=== PATIENT | female | born 1990 | race Caucasian/White ===

== ENCOUNTER 2017-07-28 15:40 | Emergency (ER) | payer OTHER ==
[2017-07-28 16:50] VITALS: BP 118/73
--- NOTE | 2017-07-28 17:11 | UC ---
Respiratory Complaint HPI - HPI Summary HPI Summary: Patient presents to the with sinus pressure, sinus congestion, DUNN and cough. She was seen by her PCP who prescribed Cefdinir without relief. She states she feels as though her symptoms are becoming worse. Denies fever, but endorses chills and sweats. Cough is with production of yellow phlegm. Denies other symptoms. Denies flu shot. Endorses sick contacts. Non-smoker. - History of Current Complaint Hx Obtained From: Patient Hx Last Menstrual Period: 07/26/17 ?: No Onset/Duration: Sudden Onset Timing: Constant Severity Initially: Moderate Severity Currently: Moderate Pain Intensity: 4 Pain Scale Used: 0-10 Numeric Character: Cough: Productive Aggravating Factors: Deep Breaths, Recumbent Position Alleviating Factors: Upright Position, Spontaneous Resolution Associated Signs And Symptoms: Positive: URI, Nasal Congestion, Sinus Discomfort - Risk Factors Pulmonary Embolism Risk Factors: Negative Cardiac Risk Factors: Negative Tuberculosis Risk Factors: Negative <Sammie Jones - Last Filed: 07/28/17 17:06> <Nathalie Bolanos - Last Filed: 07/29/17 20:19> - History of Current Complaint Chief Complaint: UCGeneralIllness Stated Complaint: SINUS,FEVER,HEADACHE Time Seen by Provider: 07/28/17 16:56 - Allergies/Home Medications Allergies/Adverse Reactions: Allergies Allergy/AdvReac Type Severity Reaction Status Date / Time No Known Allergies Allergy Verified 07/28/17 16:50 Home Medications: Home Medications Escitalopram Oxalate [Lexapro 10 mg] 10 mg PO DAILY 07/28/17 [History Confirmed 07/28/17] Ibuprofen TAB* [Advil TAB*] 200 mg PO ONCE 07/28/17 [History Confirmed 07/28/17] PMH/Surg Hx/FS Hx/Imm Hx Previously Healthy: Yes - Surgical History Surgical History: Yes Surgery Procedure, Year, and Place: Right neck lymph node at age 12yrs. gastric sleeve 01/2016 - Family History Known Family History: Positive: Unknown - Social History Occupation: Employed Full-time Lives: With Family Alcohol Use: Occasionally Substance Use Type: None Smoking Status (MU): Never Smoked Tobacco <Sammie Jones - Last Filed: 07/28/17 17:06> Review of Systems Constitutional: Fever, Fatigue Skin: Negative ENT: Nasal Discharge, Sinus Congestion, Sinus Pain/Tenderness Respiratory: Negative Cardiovascular: Negative Motor: Negative Neurovascular: Negative Musculoskeletal: Negative Neurological: Headache Psychological: Negative Is Patient Immunocompromised?: No All Other Systems Reviewed And Are Negative: Yes <Sammie Jones - Last Filed: 07/28/17 17:06> Physical Exam Triage Information Reviewed: Yes Appearance: Well-Appearing, Well-Nourished Vital Signs: Initial Vital Signs Temp 98.1 F 07/28/17 16:44 Pulse 81 07/28/17 16:44 Resp 15 07/28/17 16:44 BP 118/73 07/28/17 16:44 Pulse Ox 100 07/28/17 16:44 Vital Signs Reviewed: Yes Eye Exam: Normal Eyes: Positive: Conjunctiva Clear Neck exam: Normal Neck: Positive: Supple, No Lymphadenopathy Respiratory Exam: Normal Respiratory: Positive: Chest non-tender, Lungs clear Cardiovascular Exam: Normal Cardiovascular: Positive: RRR Musculoskeletal Exam: Normal Musculoskeletal: Positive: Strength Intact Psychological Exam: Normal Psychological: Positive: Normal Response To Family Skin Exam: Normal <Sammie Jones - Last Filed: 07/28/17 17:06> Vital Signs: Initial Vital Signs Temp 98.1 F 07/28/17 16:44 Pulse 81 07/28/17 16:44 Resp 15 07/28/17 16:44 BP 118/73 07/28/17 16:44 Pulse Ox 100 07/28/17 16:44 <Nathalie Bolanos - Last Filed: 07/29/17 20:19> UC Diagnostic Evaluation - Laboratory O2 Sat by Pulse Oximetry: 100 <Sammie Jones - Last Filed: 07/28/17 17:06> Respiratory Course/Dx - Course Course Of Treatment: Patient is evaluated for sinus pressure and congestion. She has had sinus pressure despite recent abx. She is given augmentin, mucinex and return precautions. She understands and is OK with plan. - Differential Dx/Diagnosis Differential Diagnosis/HQI/PQRI: Bronchitis, Lower Resp Infection, Sinusitis Provider Diagnoses: Sinusitis <Sammie Jones - Last Filed: 07/28/17 17:06> Discharge <Sammie Jones - Last Filed: 07/28/17 17:06> <Nathalie Bolanos - Last Filed: 07/29/17 20:19> - Discharge Plan Condition: Stable Disposition: HOME Prescriptions: Amoxicillin/Clavulanate TAB* [Augmentin TAB 875*] 875 mg PO BID #10 tab Pseudoephedrine-Guaifenesin [Guaifenesin and Pseudoeph 60-600 mg] 1 tab PO BID # 12 tab Patient Education Materials: Sinusitis (ED), Warm Compress or Soak (ED) Referrals: Bin Jessica MD [Primary Care Provider] - Additional Instructions: Humidifier in the home will help. Tylenol for discomfort. Take all medications as directed. Symptoms should resolve in 1-3 weeks. If symptoms become worse, please come back to UC or go to the ED. Honey and lemon hot tea Rest plenty of fluids. Mucinex twice daily as needed for congestion Continue with nasal spray Continue with neti poit Augmentin twice daily for 5 days If symptoms do not improve, return to the UC or follow up with your PCP Attestation Statement User Type: Provider - I was available for consult. This patient was seen by the [facility]. The patient was not presented to, seen by, or examined by me. -Meliza <Nathalie Bolanos - Last Filed: 07/29/17 20:19>
== END 2017-07-28 17:11 | disposition home or self-care (01) ==
LOC: UCCORT 15:40
DX: J32.9 Chronic sinusitis, unspecified (principal)
CPT/HCPCS: 99212; G0463

== ENCOUNTER 2018-07-30 10:56 | Emergency (ER) | payer BC, OTHER ==
[2018-07-30 11:38] VITALS: BP 111/77
--- NOTE | 2018-07-30 13:09 | UC ---
Throat Pain/Nasal Bhavin HPI - HPI Summary HPI Summary: Pt c/o sudden onset of nasal congestion, cough, generalized malaise, ST, "hot flashes" X 1 day. - History of Current Complaint Chief Complaint: UCGeneralIllness Stated Complaint: FEVER BODYACHES HEADACHE SORE THROAT Time Seen by Provider: 07/30/18 12:25 Hx Obtained From: Patient Hx Last Menstrual Period: 07/06/18 ?: No Onset/Duration: Sudden Onset, Lasting Days - 1, Still Present Severity: Mild Pain Intensity: 4 Cough: Nonproductive Associated Signs & Symptoms: Positive: Dysphagia, Sinus Discomfort - Epiglottits Risk Factors Epiglottis Risk Factors: Sudden Onset - Allergies/Home Medications Allergies/Adverse Reactions: Allergies Allergy/AdvReac Type Severity Reaction Status Date / Time No Known Allergies Allergy Verified 07/28/17 16:50 Home Medications: Home Medications Aspirin/Acetaminophen/Caffeine [Excedrin Migraine Caplet] 1 each PO DAILY [History Confirmed 07/30/18] Pseudoephedrine TAB* [Sudafed TAB*] 30 mg PO DAILY 07/30/18 [History Confirmed 07/30/18] PMH/Surg Hx/FS Hx/Imm Hx Previously Healthy: Yes - Surgical History Surgical History: Yes Surgery Procedure, Year, and Place: Right neck lymph node at age 12yrs. gastric sleeve 01/2016 - Family History Known Family History: Positive: Unknown - Social History Occupation: Employed Full-time Lives: With Family Alcohol Use: Occasionally Substance Use Type: None Smoking Status (MU): Never Smoked Tobacco Have You Smoked in the Last Year: No Review of Systems Constitutional: Fever - subjective, Chills, Fatigue Skin: Negative Eyes: Negative ENT: Sore Throat, Ear Ache, Sinus Congestion Respiratory: Cough Cardiovascular: Negative Gastrointestinal: Negative Genitourinary: Negative Motor: Negative Neurovascular: Negative Musculoskeletal: Myalgia Neurological: Headache Psychological: Negative Is Patient Immunocompromised?: No All Other Systems Reviewed And Are Negative: Yes Physical Exam Triage Information Reviewed: Yes Appearance: Well-Appearing Vital Signs: Initial Vital Signs Temp 97.9 F 07/30/18 11:23 Pulse 90 07/30/18 11:23 Resp 17 07/30/18 11:23 BP 111/77 07/30/18 11:23 Pulse Ox 100 07/30/18 11:23 Vital Signs Reviewed: Yes Eye Exam: Normal ENT Exam: Other ENT: Positive: Nasal congestion, TM bulging Dental Exam: Normal Neck exam: Normal Respiratory Exam: Normal Cardiovascular Exam: Normal Musculoskeletal Exam: Normal Neurological Exam: Normal Psychological Exam: Normal Skin Exam: Normal Diagnostics - Laboratory Diagnostic Studies Completed/Ordered: rapid strep: negative Throat Pain/Nasal Course/Dx - Differential Dx/Diagnosis Differential Diagnosis/HQI/PQRI: Influenza, Sinusitis, URI Provider Diagnoses: URI Discharge - Sign-Out/Discharge Documenting (check all that apply): Patient Departure All imaging exams completed and their final reports reviewed: No Studies - Discharge Plan Condition: Stable Disposition: HOME Patient Education Materials: Viral Syndrome (ED) Referrals: Bin Jessica MD [Primary Care Provider] - If Needed - Billing Disposition and Condition Condition: STABLE Disposition: Home
== END 2018-07-30 13:14 | disposition home or self-care (01) ==
LOC: UCCORT 10:56
DX: J06.9 Acute upper respiratory infection, unspecified (principal)
CPT/HCPCS: 87651; 99211; G0463

== ENCOUNTER 2019-10-30 09:06 | Emergency (ER) | payer BC ==
[2019-10-30 09:16] VITALS: BP 127/67
--- NOTE | 2019-10-30 09:36 | ED ---
Palpitations / Dysrhythmia - HPI Summary HPI Summary: 29 yr old female [employer], presents here with left sided facial numbness, and left arm numbness, as well as feeling her left arm is heavy and a little weak. She complains also palpitations in her chest. She denies chest pain, sob. The patient has symptoms that are moderate. She has no dizziness. The patient has no family history of hypercoagulable states, no control pills, no smoking. She has no history of structural heart disease. 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 - History of Current Complaint Chief Complaint: UCGeneralIllness Time Seen by Provider: 10/30/19 09:18 - Allergy/Home Medications Allergies/Adverse Reactions: Allergies Allergy/AdvReac Type Severity Reaction Status Date / Time No Known Allergies Allergy Verified 10/30/19 09:11 Home Medications: Home Medications Acetaminophen/Pamabrom [Midol Caplet] 1 each PO ONCE 10/30/19 [History Confirmed 10/30/19] Bupropion XL* [Wellbutrin XL *] 150 mg PO DAILY 10/30/19 [History Confirmed ] PMH/Surg Hx/FS Hx/Imm Hx - Surgical History Surgery Procedure, Year, and Place: Right neck lymph node at age 12yrs. gastric sleeve 01/2016 Infectious Disease History: No Infectious Disease History: Denies: Traveled Outside the in Last 30 Days - Family History Known Family History: Positive: Unknown - Social History Occupation: Employed Full-time Alcohol Use: Occasionally Substance Use Type: Reports: None Smoking Status (MU): Never Smoked Tobacco Have You Smoked in the Last Year: No Review of Systems Constitutional: Negative Positive: Palpitations Positive: Numbness All Other Systems Reviewed And Are Negative: Yes Physical Exam Triage Information Reviewed: Yes Vital Signs On Initial Exam: Initial Vitals Temp Pulse Resp BP Pulse Ox 98.8 F 80 14 127/67 100 10/30/19 09:12 10/30/19 09:12 10/30/19 09:12 10/30/19 09:12 10/30/19 09:12 Vital Signs Reviewed: Yes Appearance: Positive: Well-Appearing, No Pain Distress Skin: Positive: Warm, Skin Color Reflects Adequate Perfusion Head/Face: Positive: Normal Head/Face Inspection Eyes: Positive: EOMI ENT: Positive: Normal ENT inspection Neck: Positive: Nontender Respiratory/Lung Sounds: Positive: Clear to Auscultation, Breath Sounds Present Cardiovascular: Positive: RRR. Negative: Murmur Abdomen Description: Negative: Distended Musculoskeletal: Positive: Strength/ROM Intact Neurological: Positive: Sensory/Motor Intact - subjectively states it feels numb on the left face and left arm., Alert, Oriented to Person Place, Time, CN Intact II-III, Normal Gait, Speech Normal. Negative: Disoriented Psychiatric: Positive: Normal Diagnostics - Vital Signs Vital Signs Temp Pulse Resp BP Pulse Ox 10/30/19 09:12 98.8 F 80 14 127/67 100 - Laboratory Lab Statement: Any lab studies that have been ordered have been reviewed, and results considered in the medical decision making process. - EKG 10/30/19 Cardiac Rate: NL EKG Rhythm: Sinus Rhythm - 64 ST Segment: Normal Ectopy: None Course/Dx - Course Course Of Treatment: 29 yr old female with stroke like symptoms, palpitations. She signed out AMA. Risk of care accident, stroke, disability. - Diagnoses Provider Diagnoses: Palpitations, Numbness and tingling in left arm, Numbness and tingling of left side of face Discharge ED - Sign-Out/Discharge Documenting (check all that apply): Patient Departure All imaging exams completed and their final reports reviewed: No Studies - Discharge Plan Condition: Good Disposition: AGAINST MEDICAL ADVICE Referrals: Luciana Roy NP [Primary Care Provider] - - Billing Disposition and Condition Condition: GOOD Disposition: Against Medical Advice
== END 2019-10-30 09:47 | disposition left against medical advice (07) ==
LOC: UCCORT 09:06
DX: R00.2 Palpitations (principal); R20.0 Anesthesia of skin; R20.2 Paresthesia of skin
CPT/HCPCS: 93005; 99212; G0463